=== PATIENT | male | born 1990 | race African-American/Black ===

== ENCOUNTER 2019-03-30 23:29 | Emergency (ER) | payer OTHER, SELFPAY ==
[~2019-03-30] VITALS: Ht 160 cm; Wt 76.8 kg
[2019-03-31] MEDS ORDERED: IBUPROFEN 800 MG TAB PO ONE (07:00)
[2019-03-31 07:03] VITALS: BP 152/91
--- NOTE | 2019-03-31 14:29 | REP ---
RIGHT KNEE, FIVE VIEWS: There is no evidence of an acute fracture, dislocation or intrinsic bone disease. IMPRESSION: No fracture or dislocation. Electronically Signed by Carlos Kelley MD 04/01/2019 10:07 P
--- NOTE | 2019-03-31 14:29 | REP ---
RIGHT ANKLE, FOUR VIEWS: There is no evidence of an acute fracture, dislocation or intrinsic bone disease. The ankle mortise is anatomic. IMPRESSION: No fracture or dislocation. Electronically Signed by Carlos Kelley MD 04/01/2019 10:07 P
== END 2019-03-31 09:26 | disposition home or self-care (01) ==
LOC: M ED 23:29
DX: S83.511A Sprain of anterior cruciate ligament of right knee, initial encounter (principal); S93.491A Sprain of other ligament of right ankle, initial encounter; X50.9XXA Other and unspecified overexertion or strenuous movements or postures, initial encounter; Y92.89 Other specified places as the place of occurrence of the external cause; Z91.013 Allergy to seafood; Z87.891 Personal history of nicotine dependence